=== PATIENT | female | born 1970 | race Caucasian/White ===

== ENCOUNTER 2021-09-05 11:17 | Emergency (ER) | payer OTHER, SELFPAY ==
[2021-09-05 11:29] VITALS: BP 154/91; PULSE 121; RESP 16; TEMP 37.3; O2SAT 100
--- NOTE | 2021-09-05 11:35 | ED.GENADULT ---
HPI - General Adult General Chief complaint: Upper Respiratory Infection Stated complaint: Sore throat Time Seen by Provider: 09/05/21 11:36 Source: patient Mode of arrival: ambulatory Limitations: no limitations History of Present Illness HPI narrative: 51-year-old female patient presents to the [facility] with complaints of sore throat for the past 2 days. Denies any other symptoms. Patient states she is fully vaccinated against COVID. Related Data Allergies Allergy/AdvReac Type Severity Reaction Status Date / Time No Known Allergies Allergy Verified 09/05/21 11:31 Review of Systems Review of Systems: CONSTITUTIONAL: Denies fever, chills, or sweats. EYES: Denies visual changes, redness, or discharge. ENT: Denies rhinorrhea, congestion, positive sore throat, denies otalgia. CARDIOVASCULAR: Denies chest pain, palpitations, or edema. RESPIRATORY: Denies cough or dyspnea. GASTROINTESTINAL: Denies abdominal pain, nausea, vomiting, or diarrhea. GENITOURINARY: Denies dysuria or hematuria. SKIN: Denies rash or itching. MUSCULOSKELETAL: Denies back pain, joint pain, or myalgia. NEUROLOGIC: Denies headache, numbness, or weakness. PSYCHIATRIC: Denies anxiety or depression. [facility] Past Medical History Medical History (Updated 09/05/21 @ 11:51 by DEMI Madden) No significant past medical history Comments At the time of my signature I agree with nursing past medical history, surgical, social, and family history. There is no relevant family history pertinent to the presenting complaint. Exam Narrative: GENERAL: Well-appearing, well-nourished, and in no acute distress. HEAD: Normocephalic, atraumatic. EYES: PERRLA and EOMI. ENT: Nares clear, no rhinorrhea or epistaxis. Mucous membranes moist. Posterior pharynx with some erythema. No tonsillar lodgment no exudates or lesions present. NECK: Supple. No lymphadenopathy CHEST: Clear to auscultation. No respiratory distress. HEART: Regular rate and rhythm. No murmur heard. Normal peripheral pulses. ABDOMEN: Soft, nontender, nondistended, normal active bowel sounds. EXTREMITIES: Normal range of motion. No edema. SKIN: Warm, dry, no rash. NEURO: No focal deficits. Alert and oriented x3. Course Course Level of Care: [facility] Visit Reevaluation(s) Reevaluation #1: Reevaluated patient and notified her that her strep test did come back positive. Discussed with patient we will treat her with antibiotics for the strep infection and discharge her home at this time. Patient verbalized understanding denies any other questions or concerns at this time. Date: 09/05/21 Time: 11:47 Vital Signs Vital signs: Vital Signs Temperature 37.3 C 09/05/21 11:29 Pulse Rate 121 H 09/05/21 11:29 Respiratory Rate 16 09/05/21 11:29 Blood Pressure 154/91 H 09/05/21 11:29 Pulse Oximetry 100 09/05/21 11:29 Temperature 37.3 C 09/05/21 11:29 Pulse Rate 121 H 09/05/21 11:29 Respiratory Rate 16 09/05/21 11:29 Blood Pressure 154/91 H 09/05/21 11:29 Pulse Oximetry 100 09/05/21 11:29 Vital signs reviewed The patient has been informed that they may have pre-hypertension or Hypertension based on a BP reading in the department. I recommend that the patient call the primary care provider listed on their discharge instructions or a physician of their choice this week to arrange follow up for further evaluation of possible pre-hypertension or Hypertension Medical Decision Making Differential Diagnosis Differential Diagnosis: Differential diagnosis: Allergic rhinitis, chronic sinusitis, tonsillitis, acute sinusitis, infectious mononucleosis, seasonal influenza, pertussis, diphtheria, meningococcal disease, viral syndrome, viral bronchitis, RSV, COVID-19 Vital Signs Vital Signs: Vital Signs Temperature 37.3 C 09/05/21 11:29 Pulse Rate 121 H 09/05/21 11:29 Respiratory Rate 16 09/05/21 11:29 Blood Pressure 154/91 H 09/05/21 11:29 Pulse Oximetry 100 09/05/21 11
== END 2021-09-05 11:52 | disposition home or self-care (01) ==
PROVIDERS: Emergency Provider Nurse Practitioner Family
DX: J02.0 Streptococcal pharyngitis (principal)
CPT/HCPCS: 87880; 99213; G0463

== ENCOUNTER 2025-07-11 19:33 | Observation (INO) | payer OTHER, SELFPAY ==
[2025-07-11] VITALS (15 sets, daily range): BP systolic 106–136; BP diastolic 76–102; PULSE 121–153; RESP 17–22; TEMP 36.6; O2SAT 94–99
--- NOTE | ~2025-07-11 | XR_ITS ---
Examination: XR chest 1V portable Clinical History: vomit and cough Comparison: None Technique: Portable AP Findings: Heart size normal. Lungs clear. No acute bony abnormality. IMPRESSION: 1. No acute cardiopulmonary findings given portable technique. Reviewed, dictated and finalized at location R. AL GIVING DIRECTOR
--- NOTE | ~2025-07-11 | CT_ITS ---
Leonor Pradeep Erika EXAMINATION: CT abdomen pelvis w con COMPARISON: None HISTORY: lactic acidosis/VOMITING TECHNIQUE: Axial images were obtained through the abdomen, pelvis post administration of IV contrast. Oral contrast was also administered. Coronal reconstruction images were obtained from the axial views. CT scan performed using dose optimization techniques including the following automated exposure control; adjustment of mA and/or kV; use of iterative reconstruction technique. Automatic exposure control was used to reduce radiation dose. Permanent radiation dose record is archived to PACS. FINDINGS: CT abdomen: LUNG BASES: The lung bases are clear. The visualized portions of the heart and pericardium are unremarkable. LIVER: Severe hepatic steatosis. SPLEEN: Unremarkable. KIDNEYS: Right Kidney: Unremarkable. No calculi. No hydronephrosis. Left Kidney: Unremarkable. No calculi. No hydronephrosis ADRENAL GLANDS: Unremarkable. PANCREAS: Mild pancreatic atrophy. GALLBLADDER/BILIARY: Unremarkable. No biliary dilatation. STOMACH AND ESOPHAGUS: Thickening of the distal esophagus may represent mild esophagitis. Small hiatal hernia. BOWEL/MESENTERY: Moderate fecal content, no colitis or diverticulitis. Appendix is normal. Mesentery demonstrates minimal stranding which may be consistent with mild inflammation. There are no thickened or dilated loops of small bowel. ADENOPATHY/RETROPERITONEUM: No lymphadenopathy. AORTA/VASCULATURE: Normal caliber aorta. FREE FLUID OR FREE AIR: None. CT pelvis: SOLID ORGANS/REPRODUCTIVE: Probable fibroid changes noted of the uterus. BLADDER: Within normal limits. OSSEOUS STRUCTURES: No acute osseous abnormality.No suspicious lesions. OVERLYING SOFT TISSUES: Unremarkable. IMPRESSION: 1. Nonspecific stranding within the mesentery, possible mild mesenteritis 2. Incidental findings above Reviewed, dictated and finalized at location P. LIFT TECHNICIAN
--- OUTSIDE RECORDS SUMMARY | 2025-07-11 19:36 | XMS_ITS | Data Portability ---
Author Organization [facility] Address [address] [place] [address] Assessment Encounter Date Assessment Date Assessment LastModified by Organization Details LastModified Time 11/19/2024 11/19/2024 Chest pain: Low risk findings on recent stress test. Current symptoms appear to be GI related and we will prescribe a short course of Prilosec. I have encouraged to follow-up with primary care for long-term monitoring of PPI and consideration for upper GI endoscopy if indicated. Hypertension : Encouraged low-sodium diet, ambulatory blood pressure monitoring. Continue amlodipine 5 mg daily. Mixed hyperlipidemia: Mild elevation in total cholesterol in 2023. Obtain updated labs. Strongly wishes to avoid pharmacotherapy. Diet and exercise modifications reinforced. Obesity: Encouraged diet/exercise for weight management and cardiovascular risk reduction. Plan follow-up in 4 months and p.r.n. In addition we provided contact information for [facility] primary care for patient to set up appointments to establish a PCP for long-term health management and age-appropriate screenings. [email or web address] Not available 11/19/2024 15:11:13 Plan of Treatment Reminders Order Date Submit Date Provider Last Modified By Organization Details Last Modified Time Details Appointments None recorded. Lab TSH, serum or plasma 2024 025 [facility] (Lab), [address] [place] [address], [id number], 14:37:02 CBC 2024 025 [facility] (Lab), [address] [place], [address], 5 14:37:02 lipid panel, serum 2024 025 [facility] (Lab), [address] [place] [address], [address], 5 14:37:03 CMP, serum or plasma 2024 025 [facility] (Lab), [address] [place] [address], [address], 5 14:37:03 HbA1c (hemoglob in A1c), blood 2024 025 [facility] (Lab), [address] [place] [address], [address], 5 14:37:03 TSH, serum or plasma 2024 025 [email or web address], [address], [place], [address], 5 14:37:01 CBC 2024 025 [email or web address] [facility], [address], [place], [address], 5 14:37:02 lipid panel, serum 2024 025 [email or web address], [address], [place], [address], 5 14:37:02 CMP, serum or plasma 2024 025 [email or web address], [address], [place], [address], 5 14:37:02 HbA1c (hemoglob in A1c), blood 2024 025 [email or web address], [address], [place], [address], 14:37:02 Referral family medicine referral - Establish care 2024 025 [email or web address] Mabel Antonyd [facility], [address], [place], [address], 08:12:26 Procedures None recorded. Surgeries None recorded. Imaging XR, chest, 2 view 2024 025 [facility] (Imaging), [address] [place], [address], 11:43:12 electroca rdiogram 2024 025 [email or web address] In-Office Order, Internal Use Only DO Not Attach Compendium DO Not Attach Compendium, Do Not Delete/merge, [id number] 14:36:12 Medication Orders Prilosec OTC 20 mg tablet,de layed release 2024 025 [facility]/Pharmacy #[id number], [address] [place], [address], 14:17:16 amlodipin e 5 mg tablet 2024 025 [facility]/Pharmacy #[id number], [address] [place], [address], 14:39:12 Patient TargetsNo targets recorded. Patient Instructions Encounter Date Encounter Id Patient Instructions Last Modified By Organization Details Last Modified Time 11/19/2024 [id number] A healthy lifestyle: care instructions [email or web address] Not available 11/19/2024 14:36:12 03/25/2025 [id number] palpitations: care instructions [email or web address] Not available 03/25/2025 14:36:29 A healthy lifestyle: care instructions [email or web address] Not available 03/25/2025 14:45:58 Reason for Referral Family Medicine Referral for Gastroesophageal reflux disease without esophagitis Establish care Referring Physician: Hank Johnston, Cardiology, Encounter Date: 03/25/2025 Results Created Date Observation Date Name Description Value Unit Range Abnormal Flag Note LastModifiedBy Organization Detail LastModifiedTime 11/20/1911/19/2024 alok reina am No observ ation record ed. CAROL In-Office Order Internal Use Only DO Not Attach Compendium DO Not Attach Compendium, Do Not Delete/merge, [id number] 11/19/2024 14:58:26 11/20/19 alok reina am No observ ation record ed. [email or web address] Not Available 2024 15:17:37 Result Notes None recorded. Medical Equipment None Reported. Allergies No known drug allergies Medications Name Sig Start Date Stop Date Status Note LastModified by Organization Details LastModified Time amlodipine 5 mg tablet TAKE 1 TABLET BY MOUTH EVERY DAY active Not Available Not Available No t Available omeprazole 20 mg capsule,gavino yed release TAKE 1 CAPSULE BY MOUTH DAILY active Not Available Not Available No t Available amoxicillin 875 mg-potassium clavulanate 125 mg tablet TAKE 1 TABLET BY MOUTH TWICE A DAY FOR 10 DAYS 11/19 completed Not Available Not Available Not Available Prilosec OTC 20 mg tablet,delay ed release Take 1 tablet every day by oral route. 03/25 completed Not Available Not Available Not Available doxycycline monohydrate 150 mg capsule TAKE 1 CAPSULE BY MOUTH TWICE A DAY FOR 10 DAYS 11/19 completed Not Available Not Available Not Available Vitals Date Recorded Body height Body mass index (BMI) Body weight Respiratory rate Heart rate Oxygen saturation Systolic And Diastolic Provider Name and Address Organization Details Last Updated DateTime 167.64 cm 31 kg/m2 74823.7 4 g 18 /min 93 /min 97 % 134/78 mm[Hg] Veronica Jerome LPN [place] [facility] 14:23:43 Date Recorded Body height Body mass index (BMI) Body weight Respiratory rate Heart rate Oxygen saturation Systolic And Diastolic Provider Name and Address Organization Details Last Updated DateTime 167.64 cm 30.5 kg/m2 40126.9 6 g 18 /min 93 /min 98 % 124/74 mm[Hg] ALISA Blunt [facility] 14:18:36 Social History Question Answer Notes LastModified by Organizat ion Details LastModified Time Tobacco Smoking Status Never Smoker Veronica Jerome LPN null, [facility] 11/19/2024 14:21:52 What Is Your Level Of Caffeine Consumption? Occasional Information not available 11/19/2024 What Was The Date Of Your Most Recent Tobacco Screening? 03/25/2025 Information not available 03/25/2025 Has Tobacco Cessation Counseling Been Provided? No Information not available 11/19/2024 Sex: Female Functional Status Question Answer Note LastModified by Organizat ion Details LastModified Time Do you use any illicit or recreational drugs? No Information not available 11/19/2024 What is your level of alcohol consumption? Occasional Information not available 11/19/2024 Mental Status None recorded. Family History Nothing Reported. Medical History No medical history recorded. Gynecological HistoryNo gynecological history recorded. Obstetrics History GPAL:G 0 P 0 0 0 0 Immunizations Vaccine Type Date Status Note Provider Nam e and Address Organization Details Recorded Time COVID-19, mRNA, LNP-S, PF, 100 mcg/0.5mL dose or 50 mcg/0.25mL dose 08/16/2020 completed Not Available [facility] 14:11:43 COVID-19, mRNA, LNP-S, PF, 100 mcg/0.5mL dose or 50 mcg/0.25mL dose 09/13/2020 completed Not Available [facility] 14:11:43 COVID-19, mRNA, LNP-S, PF, kenny-sucrose, 30 mcg/0.3 mL 02/25/2025 completed Not Available [facility] 2024 14:11:43 Past Encounters Encounter ID Performer Location Encounter Start Date Encounter Closed Date Diagnosis/Indication Diagnosis SNOMED-CT Code Diagnosis ICD10 Code Diagnosis IMO Codes Diagnosis Note [id number] Hank Johnston MD [facility] [place] [address] [place] [address] 11/19/2024 14:11:53 11/22/2024 13:41:44 Essential hypertension 90422468 I10 Chest pain 82318875 R07. 9 Obesity 225260972 E66.9 Mixed hyperlipidemia 267 688377 E78.2 [id number] Hank Johnston MD [facility] [place] [address] [place] [address] 03/25/2025 14:10:05 03/26/2025 11:43:01 Essential hypertension 24548929 I10 77369 Continue amlodipine 5 mg daily. Will need low-sodium diet, ambulatory blood pressure monitoring and reaching out to care team if blood pressure numbers remain suboptimal (under 100/60, over 140/90) or if symptoms. Dyspnea on exertion 6084 5006 R06.09 120606 Echocardio gram 2023 with no structural heart disease, valvular disease or diastolic dysfunctio n. Low risk findings on stress test. Non nicotine user with no diabetes. Obtain chest x-ray. Obtain lab work as outlined below. Does not feel like she has symptom complex suggestive of LEANNE. Red flag symptoms reviewed. If she continues to have symptoms, may need to repeat cardiac testing. Palpitations 01861668 R0 0.2 79486 Symptoms have abated. No significan t arrhythmia s on 48 hour Holter monitor. Lifestyle modificati ons and self rhythm monitoring encouraged . Gastroesop hageal reflux disease without esophagitis 065344776 K21.9 974418 As a courtesy to the patient we will continue omeprazole which we had prescribed previously . Strongly encouraged that she follow-up with primary care to establish care and we will provide referral Obese class I [id number] 05594 E66.699 [id number] Diet/exerc ise encouraged for weight management and cardiovasc ular risk reduction. Health Concerns Section Related Observation LastModified by Organization Detai ls LastModified Time None Recorded Concern Status LastModified by Organization Details LastModified Time None Recorded Advance Directives Directive None Recorded Payers Insurance Date Sequence Insurance Name Policy Number Policy Cooper Covered Member ID Cooper Member ID Guarantor Name 06/28/2025 1 [employer] [place] - DOS ON OR AFTER 2020 (MEDICAID REPLACEMENT - HMO) Leonor James [id number] Leonor James Notes Date Note Type Note Provider Name and Address Organization Details Recorded Time 11/19/2024 text/html ROS as noted in the [facility] Leonor James is a 54 y.o. female who presents for ongoing evaluation and management of dyspnea on exertion and chest pain. Interval history:She is walking approximately 30 minutes daily and working on diet/ exercise for management of mixed hyperlipidemia. She has occasional episodes of chest pain which are postprandial, epigastric with no exertional component. She denies any subjective dyspnea. Her BP is well controlled on current dose of amlodipine. She denies any palpitations, presyncope or syncope. CARDIAC DIAGNOSTICS:Echocar diogram November 2023: LVEF 60-65%, normal RV function, no pericardial effusion, normal diastology 48 hour Holter monitor, November 2023: No significant arrhythmias noted. PAC and PVC burden less than 1%. Lexiscan nuclear stress test, November 2023: No inducible ischemia. Hank Johnston MD Attn: Accounting, [address] [place], [address], [facility] 11/19/2024 15:11:32 03/25/2025 text/html ROS as noted in the [facility] Leonor James is a 54 y.o. female who presents for ongoing evaluation and management of dyspnea on exertion and chest pain. Interval history:she has not had any chest pain. She reports sporadic palpitations which have improved. She reports exertional dyspnea while climbing uphill. She reports increased situational stressors. She has not established with a PCP. CARDIAC DIAGNOSTICS:Echocar diogram November 2023: LVEF 60-65%, normal RV function, no pericardial effusion, normal diastology 48 hour Holter monitor, November 2023: No significant arrhythmias noted. PAC and PVC burden less than 1%. Lexiscan nuclear stress test, November 2023: No inducible ischemia. Hank Johnston MD Attn: Accounting[address] [place], [address], [place] - [facility] 03/25/2025 14:47:08 OBGyn Episode No OBEpisode recorded.
--- OUTSIDE RECORDS SUMMARY | 2025-07-11 19:36 | XMS_ITS | Clinical Summary ---
Author Organization [facility] Address [address] [place] [address] Care Team Providers Care Rehabilitation Clerk Name Role Phone Unknown, Notinfile Primary Care Provider Unavail able Allergies No known active allergies Medications amLODIPine (NORVASC) 5 mg tabletIndication s:Precordial pain,Palpitation s,Hypertension, unspecified type,CORTEZ (dyspnea on exertion) Take 1 tablet (5 mg total) by mouth daily 90 tablet 3 12/06/2023 Active Active Problems Problem Noted Date Diagnosed Date Palpitations 11/04/2023 Hypertension 11/04/2023 Precordial pain 11/04/2023 CORTEZ (dyspnea on exertion) 11/04/2023 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 Doing well since surgery. No evidence of deep vein thrombosis. I have recommended continuing her compression therapy. She has been having issues with hypertension and palpitations, discussed with Dr. Johnston we will get her in for further evaluation. 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 Left great saphenous vein is noted to be ablated in no acute DVT is found on postop day 3 and 4 week duplex scan. Stab phlebectomy sites are healed. Patient complains of discomfort to her right lower extremity with significant reflux to the right great saphenous femoral junction. Plan: Recommend right EVLT with stab phlebectomies. Risks, benefits, and alternatives to saphenous ablation and stab phlebectomies were discussed with the patient. Risks including bleeding, infection, deep vein thrombosis, pulmonary embolism, burn injury to the skin and/or nerve. They wished to proceed. 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 Left greater than right. Risks benefits alternatives to left GSV ablation and stab phlebectomies discussed, risks including bleeding, infection, DVT/PE, thermal injury to the skin and surrounding structures, and need further surgery. She wished to proceed. Assessment & Plan (02/04/2023 12:22 PM CDT): Symptomatic bulky varicosities noted to the left medial calf. Encouraged frequent elevation and use compression therapy . Plan: Obtain a reflux study and follow-up in the next few weeks. Family History Medical History Relation Name Comments Sudden Cardiac Mother Relation Name Status Comments Mother Social History Tobacco Use Types Packs/Day Years Used Date Smoking Tobacco: Never Smokeless Tobacco: Never Tobacco Cessation:Counseling Given: Not Answered Personal Safety Answer Date Recorded Getting School Help Needed Not on file 08/11 Comments No Sex and Gender Information Value Date Recorded Sex Assigned at Not on file Legal Sex Female 3:10 PM CDT Gender Identity Female 05/24/2023 3:15 PM CDT Sexual Orientation Not on file Last Filed Vital Signs Vital Sign Reading Time Taken Comments Blood Pressure 120/80 12/06/2023 10:48 AM CDT Pulse 76 12/06/2023 10:48 AM CDT Temperature - - Respiratory Rate - - Oxygen Saturation 99% 12/06/2023 10:48 AM CDT Inhaled Oxygen Concentration - - Weight 86.6 kg (191 lb) 12/06/2023 10:48 AM CDT Height 167.6 cm (5' 6) 10/31/2023 3:02 PM CDT Body Mass Index 30.83 10/31/2023 3:02 PM CDT Plan of Treatment Health Maintenance Due Date Last Done Comments Breast Cancer Screening-Mammogram 1970 Cervical Cancer Screening 1970 Colon Cancer Screening-Colonoscopy 1970 Depression Screening 1970 Hepatitis C Screening 1970 DTaP/Tdap/Td Vaccine (1 - Tdap) 1981 Hepatitis B Screening 1988 Regular Well Visit/Exam 18-64 1988 Zoster Vaccine (1 of 2) 2020 Covid-19 Vaccine (3 - 2024-2 6 season) 2025 09/13/2020, 08/16/2020 Influenza Vaccine (#1) 2025 Pneumococcal vaccine <65 Aged Out No longer eligible based on patient's age to complete this topic Insurance [facility] Care Teams Rehabilitation Clerk Relationship Specialty Start Date End Date Unknown, Notinfile PCP - General 01/31/23
--- NOTE | 2025-07-11 19:38 | ED_ITS ---
HPI - General Adult General Chief complaint: Nausea/Vomiting/Diarrhea Stated complaint: vomiting x 2 days Time Seen by Provider: 07/11/25 19:37 History of Present Illness HPI narrative: Leonor is a 54F with a PMH of HTN, etoh use, and and anxiety that presented to the ED with 2 days of not feeling well. It started with fatigue and aches and today she started to have a lot of nausea and non-bloody vomiting. She has not been able to keep anything down. No diarrhea, fevers, CP or dyspnea. Related Data Allergies Allergy/AdvReac Type Severity Reaction Status Date / Time No Known Allergies Allergy Verified 07/11/25 20:28 Review of Systems 2 Review of Systems: All systems reviewed & are unremarkable except as noted in HPI and below [facility] Past Medical History Medical History No significant past medical history Exam 2 Const: General: cooperative, healthy appearing, comfortable, no acute distress, well developed, alert, awake and Physically active O rientation/consciousness: oriented to person, oriented to place and oriented to time Other: moderate tremors HENMT: Head: normal to inspection, normocephalic and atraumatic Ears: h earing grossly normal bilaterally and external ears normal Face/Nose/Sinus: N ormal external nose present Eyes: General: appearance normal, both eyes and all related structures P eriorbital: periorbital findings normal Sclera: sclerae normal Pupils: E qual, round and reactive pupils present Neck: Neck: normal visual inspection Chest: Chest palpation & inspection: normal inspection of the chest Resp: Effort & Inspection: normal respiratory effort, able to speak in complete sentences and no respiratory distress Auscultation: clear to auscultation bilaterally Cardio: Jugular venous distension: no JVD Rhythm: regular rhythm Other: tachycardia GI: Inspection: normal to inspection GI Palp: Yes Soft to palpation A uscultation: normal bowel sounds Skin: General skin exam: normal color and no rashes or lesions noted Neuro: General: oriented to person, oriented to place and oriented to time Cranial nerves: Yes Equal, round and reactive pupils present Extrem: General: normal to inspection Psych: Other: very anxious appearing. Course Course Emergency Course: Ordered labs, EKG, fluids, zofran and diazepam EKG showed sinus tachycardia with a rate of 134, normal axis and no ST elevation/depression Labs showed mild leukocytosis, transaminitis, elevated bilirubin and very high lactic acid. Ordered additional fluids, repeat labs, blood cultures and zosyn. Repeat lactic acid and AST/ALT were improved but still elevated. Fluids were continued and a CT was done with results pending. CT showed hepatic steatosis, slight haziness in the mesentery consistent with mild mesenteritis, multiple uterine fibroids, uterus measures 6.0 x 6.2 x 6.1. No other acute findings or incidental findings. Repeat lactic acid trended down to 2. She agreed to be admitted to observation here. Her pulse had come down to 104, BP was stable. Fluids were continued and she was given another dose of Zosyn. She will be admitted for lactic acidodis, sepsis, and N/V Vital Signs Vital signs: Vital Signs Temperature 97.9 F 07/11/25 19:33 Pulse Rate 153 H 07/11/25 19:33 Respiratory Rate 22 H 07/11/25 19:33 Blood Pressure 131/102 H 07/11/25 19:33 Pulse Oximetry 95 07/11/25 19:33 Oxygen Delivery Room Air 07/11/25 19:33 Temperature 97.9 F 07/11/25 19:33 Pulse Rate 109 H 07/12/25 04:21 Respiratory Rate 16 07/12/25 04:00 Blood Pressure 118/76 07/12/25 04:00 Pulse Oximetry 94 07/12/25 04:00 Oxygen Delivery Room Air 07/12/25 04:00 Medical Decision Making Vital Signs Vital Signs: Vital Signs Temperature 97.9 F 07/11/25 19:33 Pulse Rate 153 H 07/11/25 19:33 Respiratory Rate 22 H 07/11/25 19:33 Blood Pressure 131/102 H 07/11/25 19:33 Pulse Oximetry 95 07/11/25 19:33 Oxygen Delivery Room Air 07/11/25 19:33 Temperature 97.9 F 07/11/25 19:33 Pulse Rate 109 H 07/12/25 04:21 Respiratory Rate 16 07/12/25 04:00 Blood Pressure 118/76 07/12/25 04:00 Pulse Oximetry 94 07/12/25 04:00 Oxygen Delivery Room Air 07/12/25 04:00 Lab Data 07/11/25 19:50 07/11/25 22:01 Labs: Lab Results 07/11/25 07/11/25 07/11/25 Range/Units 19:38 19:50 21:24 WBC 13.8 H (4.8-10.8) K/mm3 RBC 5.13 (4.20-5.40) M/mm3 Hgb 15.4 H (12.0-15.0) g/dL Hct 48.4 (35.0-49.0) % MCV 94.3 (78.0-102.0) fL MCH 30.0 (27.0-31.0) pg MCHC 31.8 L (32-36) g/dL RDW 14.0 (11.6-14.4) % Plt Count 313 (150-420) K/mm3 MPV 10.0 (9.2-11.8) fl Immature Gran % (Auto) 0.4 H (0.0-0.0) % Neut % (Auto) 93.0 H (50.0-70.0) % Lymph % (Auto) 3.3 L (18.0-42.0) % [place] % (Auto) 2.6 (2.0-11.0) % Eos % (Auto) 0.3 L (1.0-6.0) % Baso % (Auto) 0.4 (0.0-1.0) % Lymph # (Auto) 0.46 L (1.10-4.50) K/mm3 [place] # (Auto) 0.36 (0.10-0.90) K/mm3 Eos # (Auto) 0.04 (0.02-0.50) K/mm3 Baso # (Auto) 0.06 (0.00-0.10) K/mm3 Abs Immat Gran (auto) 0.05 H (0.00-0.00) K/mm3 Absolute Neuts (auto) 12.83 H (1.70-7.20) K/mm3 Absolute Nucleated RBC 0.00 (0.00-0.00) K/mm3 Nucleated RBC % 0.0 (0-0.0) % PT 11.4 (9.50-12.1) Seconds INR 1.0 Sodium 144 (137-145) mmol/L Potassium 4.2 (3.4-5.0) mmol/L Chloride 101 (98-107) mmol/L Carbon Dioxide 13 L (22-30) mmol/L Anion Gap 30 H (4-12) mmol/L BUN 9 (7-17) mg/dL Creatinine 0.81 (0.7-1.0) mg/dL Estim Creat Clear Calc Not Reportable Estimated GFR > 60 (59 - ) Glucose 109 (65-110) mg/dL POC Capillary Glucose 93 (65-105) mg/dl Calculated Osmolality 297 H (285-295) mOsm/kg Lactic Acid 11.9 H* (0.7-2.0) mmol/L Calcium 10.3 H (8.4-10.2) mg/dL Magnesium 1.7 (1.6-2.3) mg/dL Total Bilirubin 1.8 H (0.2-1.3) mg/dL AST 161 H (14-36) U/L ALT 106 H (6-35) U/L Alkaline Phosphatase 117 (38-126) U/L Troponin I < 0.012 (0.000-0.034) ng/mL Total Protein 9.1 H (6.3-8.2) g/dL Albumin 5.4 H (3.5-5.1) g/dL Lipase 58 (23-300) U/L TSH 0.509 (0.465-4.680) uIU/mL Urine Color Light yellow (Yellow) Urine Appearance Clear (Clear) Urine pH 5.5 (5.0-8.0) Ur Specific [place] >= 1.030 H (1.010-1.020) Urine Protein Trace H (Negative) Urine Glucose (UA) Negative (Negative) Urine Ketones 2+ H (Negative) Ur Blood (Man) Negative (Negative) Urine Nitrate Negative (Negative) Urine Bilirubin Negative (Negative) Urine Urobilinogen 0.2 (0.2-1.0) mg/dL Leukocyte Esterase Rfl Negative (Negative) SUZIE/UL Urine RBC 0-2 (0-2) /hpf Urine WBC 0-3 (0-3) /hpf Ur Squamous Epith Cells Rare (Few) /hpf Urine Bacteria Trace (None) /hpf Urine Opiates Screen Negative (Negative) Urine Methadone Screen Negative (Negative) Ur Barbiturates Screen Negative (Negative) Ur Phencyclidine Scrn Negative (Negative) Ur Amphetamine Screen Negative (Negative) U Benzodiazepines Scrn Negative (Negative) Urine Cocaine Screen Negative (Negative) U Cannabinoids Screen Negative (Negative) Ethyl Alcohol < 10 (<10) mg/dL Hepatitis A IgM Ab Hep Bs Antigen Hep B Core IgM Ab Hepatitis C Ab Screen Influenza A (RT-PCR) Negative (Negative) Influenza B (RT-PCR) Negative (Negative) RSV (RT-PCR) Negative (Negative) SARS-CoV-2 RNA (RT-PCR) Negative (Negative) 07/11/25 07/12/25 Range/Units 22:01 03:19 WBC (4.8-10.8) K/mm3 RBC (4.20-5.40) M/mm3 Hgb (12.0-15.0) g/dL Hct (35.0-49.0) % MCV (78.0-102.0) fL MCH (27.0-31.0) pg MCHC (32-36) g/dL RDW (11.6-14.4) % Plt Count (150-420) K/mm3 MPV (9.2-11.8) fl Immature Gran % (Auto) (0.0-0.0) % Neut % (Auto) (50.0-70.0) % Lymph % (Auto) (18.0-42.0) % [place] % (Auto) (2.0-11.0) % Eos % (Auto) (1.0-6.0) % Baso % (Auto) (0.0-1.0) % Lymph # (Auto) (1.10-4.50) K/mm3 [place] # (Auto) (0.10-0.90) K/mm3 Eos # (Auto) (0.02-0.50) K/mm3 Baso # (Auto) (0.00-0.10) K/mm3 Abs Immat Gran (auto) (0.00-0.00) K/mm3 Absolute Neuts (auto) (1.70-7.20) K/mm3 Absolute Nucleated RBC (0.00-0.00) K/mm3 Nucleated RBC % (0-0.0) % PT (9.50-12.1) Seconds INR Sodium 142 (137-145) mmol/L Potassium 4.5 (3.4-5.0) mmol/L Chloride 103 (98-107) mmol/L Carbon Dioxide 16 L (22-30) mmol/L Anion Gap 23 H (4-12) mmol/L BUN 7 (7-17) mg/dL Creatinine 0.71 (0.7-1.0) mg/dL Estim Creat Clear Calc 84 Estimated GFR > 60 (59 - ) Glucose 78 (65-110) mg/dL POC Capillary Glucose (65-105) mg/dl Calculated Osmolality 291 (285-295) mOsm/kg Lactic Acid 9.0 H* 2.2 H (0.7-2.0) mmol/L Calcium 10.0 (8.4-10.2) mg/dL Magnesium (1.6-2.3) mg/dL Total Bilirubin 2.2 H (0.2-1.3) mg/dL AST 142 H (14-36) U/L ALT 89 H (6-35) U/L Alkaline Phosphatase 101 (38-126) U/L Troponin I (0.000-0.034) ng/mL Total Protein 8.1 (6.3-8.2) g/dL Albumin 5.0 (3.5-5.1) g/dL Lipase (23-300) U/L TSH (0.465-4.680) uIU/mL Urine Color (Yellow) Urine Appearance (Clear) Urine pH (5.0-8.0) Ur Specific [place] (1.010-1.020) Urine Protein (Negative) Urine Glucose (UA) (Negative) Urine Ketones (Negative) Ur Blood (Man) (Negative) Urine Nitrate (Negative) Urine Bilirubin (Negative) Urine Urobilinogen (0.2-1.0) mg/dL Leukocyte Esterase Rfl (Negative) SUZIE/UL Urine RBC (0-2) /hpf Urine WBC (0-3) /hpf Ur Squamous Epith Cells (Few) /hpf Urine Bacteria (None) /hpf Urine Opiates Screen (Negative) Urine Methadone Screen (Negative) Ur Barbiturates Screen (Negative) Ur Phencyclidine Scrn (Negative) Ur Amphetamine Screen (Negative) U Benzodiazepines Scrn (Negative) Urine Cocaine Screen (Negative) U Cannabinoids Screen (Negative) Ethyl Alcohol (<10) mg/dL Hepatitis A IgM Ab Pending Hep Bs Antigen Pending Hep B Core IgM Ab Pending Hepatitis C Ab Screen Pending Influenza A (RT-PCR) (Negative) Influenza B (RT-PCR) (Negative) RSV (RT-PCR) (Negative) SARS-CoV-2 RNA (RT-PCR) (Negative) Discharge Plan Discharge Clinical Impression: Acidosis, lactic, Sepsis, Nausea & vomiting Patient Disposition: [facility] Condition: Serious Patient Language: Jamaican Prescriptions: No Action amoxicillin 500 mg tablet 1,000 mg PO Q12H 10 Days Qty: 40 0RF fluconazole 150 mg tablet 150 mg PO DAILY Qty: 1 0RF Follow-up/Referrals: UNKNOWN,DOCTOR [Non-Staff]
--- NOTE | 2025-07-11 19:39 | ECG_ITS ---
Test Date: 2025-07-11 19:55:15 Measurements Intervals [place] Rate: 134 P: 35 OR: 138 QRS: 67 QRSD: 78 T: 25 QT: 300 QTc: 449 Interpretive Statements REDUCED ECG QUALITY BECAUSE OF BASELINE ARTIFACT SINUS TACHYCARDIA OTHERWISE GROSSLY NORMAL TRACING No previous ECG available for comparison Electronically Signed On 07-12-2025 13:30:19 PROJECT ADMIN by Vitaliy White M.D.
--- NOTE | 2025-07-11 19:40 | PC.NURSE ---
DR ARRIOLA AT THE BEDSIDE
[2025-07-11] MEDS: LACTATED RINGERS 1,000 ML 999 ML IV CONT ×3 (20:00→22:05)
[2025-07-11] MEDS: ONDANSETRON INJ 4 MG/2 ML VIAL IV PUSH ×2 (20:00→23:00)
[2025-07-11] MEDS: diazePAM INJ (*CRX) 10 MG/2 ML SYRINGE 5 MG IV PUSH ×2 (20:01→22:05)
[2025-07-11 20:02] LABS: Hematocrit 48.4 % (35.0-49.0); Hemoglobin 15.4 g/dL (12.0-15.0); Immature Granulocyte Percent A 0.4 % (0.0-0.0); Lymphocytes Absolute Auto 0.46 K/mm3 (1.10-4.50); Mean Corpuscular HGB Conc 31.8 g/dL (32-36); Mean Corpuscular Hemoglobin 30.0 pg (27.0-31.0); Mean Corpuscular Volume 94.3 fL (78.0-102.0); Nucleated Red Blood Cells Absolute Auto 0.00 K/mm3 (0.00-0.00); Nucleated Red Blood Cells Perc 0.0 % (0-0.0); Platelet Count Result 313 K/mm3 (150-420); Red Blood Count 5.13 M/mm3 (4.20-5.40); White Blood Count 13.8 K/mm3 (4.8-10.8)
[2025-07-11 20:13] LABS: Alanine Aminotransferase 106 U/L (6-35); Albumin Level 5.4 g/dL (3.5-5.1); Aspartate Amino Transferase 161 U/L (14-36); Blood Urea Nitrogen 9 mg/dL (7-17); Carbon Dioxide 13 mmol/L (22-30); Estimated Glomerular Filt Rate > 60; Total Protein 9.1 g/dL (6.3-8.2)
[2025-07-11 20:14] LABS: INR 1.0; Prothrombin Time 11.4 Seconds (9.50-12.1)
--- NOTE | 2025-07-11 20:19 | PC.NURSE ---
PATIENT IS CURRENLTY RESTING ON STRETCHER. REPORTS THAT HER SHAKING HAS GOTTEN BETTER SINCE RECEIVING VALIUM. IS AT HER SIDE. CALL LIGHT IS IN REACH. CURRENTLY WAITING FOR ALL TESTS TO BE RESULTED.
[2025-07-11 20:25] LABS: Troponin I < 0.012 ng/mL (0.000-0.034)
[2025-07-11 20:38] LABS: Alkaline Phosphatase 117 U/L (38-126); Anion Gap 30 mmol/L (4-12); Bilirubin,Total 1.8 mg/dL (0.2-1.3); Calcium 10.3 mg/dL (8.4-10.2); Chloride 101 mmol/L (98-107); Glucose 109 mg/dL (65-110); Lipase 58 U/L (23-300); Magnesium 1.7 mg/dL (1.6-2.3); Osmolality Calculated 297 mOsm/kg (285-295); Potassium 4.2 mmol/L (3.4-5.0); Sodium 144 mmol/L (137-145)
[2025-07-11 20:39] LABS: Influenza A QL RT-PCR Negative (Negative); Influenza B QL RT-PCR Negative (Negative); RSV RNA, RT-PCR Negative (Negative); SARS-CoV-2 RNA PCR Negative (Negative)
--- NOTE | 2025-07-11 21:15 | PC.NURSE ---
PATIENT AMBULATED TO THE BATHROOM TO GIVE URINE SAMPLE. PATIENT HAS STARTED TO SHAKE UNCONTROLLABLY AGAIN. DR ARRIOLA NOTIFIED
[2025-07-11 21:16] LABS: Thyroid Stimulating Hormone 0.509 uIU/mL (0.465-4.680)
[2025-07-11 21:34] LABS: Add Urine Microscopic? YES; Appearance Urine Clear (Clear); Glucose Urine UA Negative (Negative); Leukocyte Esterase Ur Negative LEU/UL (Negative); Nitrate Urine Negative (Negative); Specific Grav Ur >= 1.030 (1.010-1.020)
[2025-07-11 21:50] LABS: Cannabinoid Screen Urine Negative (Negative)
--- NOTE | 2025-07-11 21:52 | PC.NURSE ---
DR ARRIOLA AT THE BEDSIDE
--- NOTE | 2025-07-11 21:56 | PC.NURSE ---
LAB AT THE BEDSIDE. WILL START ANTIBIOTICS ONCE BLOOD CULTURES HAVE BEEN DRAWN
[2025-07-11] MEDS: PIPERACILLIN/TAZOBACTAM SOD 3.375 GM in SODIUM CHLORIDE 0.9% IV 50 ML 100 ML IVPB (22:05)
[2025-07-11 22:18] LABS: Alanine Aminotransferase 89 U/L (6-35); Albumin Level 5.0 g/dL (3.5-5.1); Alkaline Phosphatase 101 U/L (38-126); Anion Gap 23 mmol/L (4-12); Aspartate Amino Transferase 142 U/L (14-36); Bilirubin,Total 2.2 mg/dL (0.2-1.3); Blood Urea Nitrogen 7 mg/dL (7-17); Calcium 10.0 mg/dL (8.4-10.2); Carbon Dioxide 16 mmol/L (22-30); Chloride 103 mmol/L (98-107); Estimated CRCL calculation 84 ml/min; Estimated Glomerular Filt Rate > 60; Glucose 78 mg/dL (65-110); Osmolality Calculated 291 mOsm/kg (285-295); Potassium 4.5 mmol/L (3.4-5.0); Sodium 142 mmol/L (137-145); Total Protein 8.1 g/dL (6.3-8.2)
--- NOTE | 2025-07-11 22:18 | PC.NURSE ---
PATIENT IS CURRENTLY IN CT
--- NOTE | 2025-07-11 22:24 | PC.NURSE ---
PATIENT HAS TREMBLING AGAIN AND NAUSEA. MEDICATED WITH VALIUM. PATIENT IS ON STRETCHER. ANTIBIOTIC IS INFUSING TO RIGHT AC. PATIENT HAS CALL LIGHT IN REACH. IS AT HER SIDE.
--- NOTE | 2025-07-11 22:50 | PC.NURSE ---
PATIENT IS RETCHING IN THE ROOM. WILL UPDATE DR ARRIOLA.
--- NOTE | 2025-07-11 23:57 | PC.NURSE ---
PATIENT VOMITING AGAIN. DR ARRIOLA HAS BEEN NOTIFIED.
[2025-07-12] VITALS (17 sets, daily range): BP systolic 116–141; BP diastolic 75–98; PULSE 98–143; RESP 16–22; TEMP 36.8–37.7; O2SAT 93–100; BMI 29.7
[2025-07-12] MEDS: LACTATED RINGERS 1,000 ML 150 ML IV CONT (00:02)
[2025-07-12] MEDS: diazePAM INJ (*CRX) 10 MG/2 ML SYRINGE 5 MG IV PUSH (00:16)
--- NOTE | 2025-07-12 00:41 | PC.NURSE ---
PATIENT IS CURRENTLY NOT VOMITING. REPORTS THAT SHE DOESNT FEEL LIKE SHE NEEDS TO VOMIT. IS AT HER SIDE. CALL LIGHT IN REACH
--- NOTE | 2025-07-12 00:44 | PC.NURSE ---
CURRENTLY WAITING ON CT RESULTS. PATIENT AND AWARE OF DELAY.
--- NOTE | 2025-07-12 01:40 | PC.NURSE ---
SITTING AT THE FOOT OF THE STRETCHER. TRYING TO GET COMFORTABLE. REPORTS BURNING SENSATION TO HER THROAT AND UPPER CHEST AFTER VOMITING. CURRENTLY VOMITING UP BILE.
--- NOTE | 2025-07-12 02:27 | PC.NURSE ---
PATIENT AMBUALTED DOWN TO THE BATHROOM WITH THE HELP OF HER . CURRENTLY NO RETCHING OR VOMITING.
--- NOTE | 2025-07-12 02:33 | PC.NURSE ---
CALLED RADIOLOGY FOR UPDATE ON CT RESULTS. EDWARD WILL LOOK INTO IT.
[2025-07-12] MEDS: PROCHLORPERAZINE EDISYLATE 10 MG/2 ML VIAL IV PUSH (03:15)
--- NOTE | 2025-07-12 03:46 | PC.NURSE ---
DR ARRIOLA AT THE BEDSIDE
--- NOTE | 2025-07-12 04:10 | PC.NURSE ---
PATIENT APPEARS TO BE SLEEPING AT THIS TIME. CALL LIGHT IN REACH. RESTING IN CHAIR IN THE ROOM
--- NOTE | 2025-07-12 04:43 | PC.NURSE ---
FARHAD MAURER NOTIFIED OF BED REQUEST
--- NOTE | 2025-07-12 05:10 | ADMGEN ---
This patient, Leonor James, was admitted to 2nd Floor Room 205-1. Patient/family oriented to hospital policies and general routines including ID bracelet, bed and alarms, visiting hours, pain management, procedures, bathroom and other care routines, personal items, smoking policy, room service/diet, and visiting hours. Information on how to activate the Rapid Response Team has been discussed. Patient/Family are encouraged to report perceived risks to care and to ask questions if they do not understand what they are told or what they should do.
[2025-07-12] MEDS: PIPERACILLIN/TAZOBACTAM SOD 3.375 GM in SODIUM CHLORIDE 0.9% IV 50 ML 100 ML IVPB (05:13)
[2025-07-12] MEDS: ONDANSETRON INJ 4 MG/2 ML VIAL IV PUSH (05:45)
[2025-07-12 07:42] LABS: Hematocrit 37.6 % (35.0-49.0); Hemoglobin 12.5 g/dL (12.0-15.0); Immature Granulocyte Percent A 0.3 % (0.0-0.0); Lymphocytes Absolute Auto 1.15 K/mm3 (1.10-4.50); Mean Corpuscular HGB Conc 33.2 g/dL (32-36); Mean Corpuscular Hemoglobin 31.0 pg (27.0-31.0); Mean Corpuscular Volume 93.3 fL (78.0-102.0); Nucleated Red Blood Cells Absolute Auto 0.00 K/mm3 (0.00-0.00); Nucleated Red Blood Cells Perc 0.0 % (0-0.0); Platelet Count Result 203 K/mm3 (150-420); Red Blood Count 4.03 M/mm3 (4.20-5.40); White Blood Count 6.8 K/mm3 (4.8-10.8)
[2025-07-12] MEDS: PANTOPRAZOLE 40 MG TABLET PO (08:00)
[2025-07-12 08:07] LABS: Alanine Aminotransferase 64 U/L (6-35); Albumin Level 4.3 g/dL (3.5-5.1); Alkaline Phosphatase 82 U/L (38-126); Anion Gap 11 mmol/L (4-12); Aspartate Amino Transferase 112 U/L (14-36); Bilirubin,Total 1.8 mg/dL (0.2-1.3); Blood Urea Nitrogen 8 mg/dL (7-17); Calcium 9.4 mg/dL (8.4-10.2); Carbon Dioxide 31 mmol/L (22-30); Chloride 98 mmol/L (98-107); Estimated CRCL calculation 81 ml/min; Estimated Glomerular Filt Rate > 60; Glucose 80 mg/dL (65-110); Osmolality Calculated 287 mOsm/kg (285-295); Potassium 3.7 mmol/L (3.4-5.0); Sodium 140 mmol/L (137-145); Total Protein 6.8 g/dL (6.3-8.2)
--- NOTE | 2025-07-12 10:25 | PM.SD2 ---
Same Day Admit/Disch: HPI History of Present Illness Chief complaint: vomiting x 2 days Narrative: Leonor James is a 54 year old female [facility] Past Medical History Medical History No significant past medical history Social History Social History Smoking status: Never smoker Alcohol intake: current Drinks per week: 10 Substance use: never Lack of Transportation: No Lack of Food: Never True Current Housing: I Have Housing Concerned About Future Housing: No Difficulty Paying Gas/Electric Bills: No Difficulty Paying for Meds: No Currently Unemployed: No Education: Associate Degree Difficulty w/ Childcare or Family Care: No Spiritual care concerns: No Same Day Admit/Disch: Med Pre-admit Medications Home Medications ?Medication ?Instructions ?Recorded ?Confirmed ?Type amlodipine 5 mg tablet 5 mg PO DAILY hypertension 07/12/25 07/12/25 History omeprazole 20 mg capsule,delayed 20 mg PO DAILY 07/12/25 07/12/25 History release ondansetron 4 mg disintegrating 4 mg PO Q8H PRN nausea and 07/12/25 Rx tablet vomiting #7 tabs Review of Systems Review of Systems All systems reviewed & are unremarkable except as noted in HPI and below Exam Const: General: comfortable and no acute distress HENMT: Face/Nose/Sinus: Normal nares present Mouth: Yes moist mucous membranes Eyes: General: appearance normal, both eyes and all related structures Sclera: sclerae normal Neck: Neck: supple Resp: Effort & Inspection: normal respiratory effort Auscultation: clear to auscultation bilaterally Cardio: Rate: regular rate Rhythm: regular rhythm GI: GI Palp: Yes Soft to palpation Auscultation: normal bowel sounds Skin: General skin exam: normal color and no rashes or lesions noted Neuro: General: gait normal Speech: normal speech Motor exam (neuro): 5/5 motor strength present throughout Sensory Exam: normal sensation Extrem: General: normal to inspection Psych: Mental Status: mental status grossly normal Affect: normal affect DS: Data Data Completed and Pending Pending studies at discharge: blood cultures Labs on day of discharge: Labs from last 24 hours 07/12/25 07/12/25 07/11/25 07:37 03:19 22:01 WBC 6.8 RBC 4.03 L Hgb 12.5 Hct 37.6 MCV 93.3 MCH 31.0 MCHC 33.2 RDW 14.3 Plt Count 203 MPV 9.3 Immature Gran % (Auto) 0.3 H Neut % (Auto) 72.1 H Lymph % (Auto) 16.9 L [place] % (Auto) 10.3 Eos % (Auto) 0.1 L Baso % (Auto) 0.3 Lymph # (Auto) 1.15 [place] # (Auto) 0.70 Eos # (Auto) 0.01 L Baso # (Auto) 0.02 Abs Immat Gran (auto) 0.02 H Absolute Neuts (auto) 4.92 Absolute Nucleated RBC 0.00 Nucleated RBC % 0.0 PT INR Sodium 140 142 Potassium 3.7 4.5 Chloride 98 103 Carbon Dioxide 31 H 16 L Anion Gap 11 23 H BUN 8 7 Creatinine 0.75 0.71 Estim Creat Clear Calc 81 84 Estimated GFR > 60 > 60 Glucose 80 78 POC Capillary Glucose Calculated Osmolality 287 291 Lactic Acid 1.0 2.2 H 9.0 H* Calcium 9.4 10.0 Magnesium Total Bilirubin 1.8 H 2.2 H AST 112 H 142 H ALT 64 H 89 H Alkaline Phosphatase 82 101 Troponin I Total Protein 6.8 8.1 Albumin 4.3 5.0 Lipase TSH Urine Color Urine Appearance Urine pH Ur Specific [place] Urine Protein Urine Glucose (UA) Urine Ketones Ur Blood (Man) Urine Nitrate Urine Bilirubin Urine Urobilinogen Leukocyte Esterase Rfl Urine RBC Urine WBC Ur Squamous Epith Cells Urine Bacteria Urine Opiates Screen Urine Methadone Screen Ur Barbiturates Screen Ur Phencyclidine Scrn Ur Amphetamine Screen U Benzodiazepines Scrn Urine Cocaine Screen U Cannabinoids Screen Ethyl Alcohol Hepatitis A IgM Ab Pending Hep Bs Antigen Pending Hep B Core IgM Ab Pending Hepatitis C Ab Screen Pending Influenza A (RT-PCR) Influenza B (RT-PCR) RSV (RT-PCR) SARS-CoV-2 RNA (RT-PCR) 07/11/25 07/11/25 07/11/25 21:24 19:50 19:38 WBC 13.8 H RBC 5.13 Hgb 15.4 H Hct 48.4 MCV 94.3 MCH 30.0 MCHC 31.8 L RDW 14.0 Plt Count 313 MPV 10.0 Immature Gran % (Auto) 0.4 H Neut % (Auto) 93.0 H Lymph % (Auto) 3.3 L [place] % (Auto) 2.6 Eos % (Auto) 0.3 L Baso % (Auto) 0.4 Lymph # (Auto) 0.46 L [place] # (Auto) 0.36 Eos # (Auto) 0.04 Baso # (Auto) 0.06 Abs Immat Gran (auto) 0.05 H Absolute Neuts (auto) 12.83 H Absolute Nucleated RBC 0.00 Nucleated RBC % 0.0 PT 11.4 INR 1.0 Sodium 144 Potassium 4.2 Chloride 101 Carbon Dioxide 13 L Anion Gap 30 H BUN 9 Creatinine 0.81 Estim Creat Clear Calc Not Reportable Estimated GFR > 60 Glucose 109 POC Capillary Glucose 93 Calculated Osmolality 297 H Lactic Acid 11.9 H* Calcium 10.3 H Magnesium 1.7 Total Bilirubin 1.8 H AST 161 H ALT 106 H Alkaline Phosphatase 117 Troponin I < 0.012 Total Protein 9.1 H Albumin 5.4 H Lipase 58 TSH 0.509 Urine Color Light yellow Urine Appearance Clear Urine pH 5.5 Ur Specific [place] >= 1.030 H Urine Protein Trace H Urine Glucose (UA) Negative Urine Ketones 2+ H Ur Blood (Man) Negative Urine Nitrate Negative Urine Bilirubin Negative Urine Urobilinogen 0.2 Leukocyte Esterase Rfl Negative Urine RBC 0-2 Urine WBC 0-3 Ur Squamous Epith Cells Rare Urine Bacteria Trace Urine Opiates Screen Negative Urine Methadone Screen Negative Ur Barbiturates Screen Negative Ur Phencyclidine Scrn Negative Ur Amphetamine Screen Negative U Benzodiazepines Scrn Negative Urine Cocaine Screen Negative U Cannabinoids Screen Negative Ethyl Alcohol < 10 Hepatitis A IgM Ab Hep Bs Antigen Hep B Core IgM Ab Hepatitis C Ab Screen Influenza A (RT-PCR) Negative Influenza B (RT-PCR) Negative RSV (RT-PCR) Negative SARS-CoV-2 RNA (RT-PCR) Negative Imaging Radiologist's impression: Ordering Physician: Ruben Live DO Date of Service: 07/11/25 Procedure(s): XR chest 1V portable Accession Number(s): [id number] cc: Ruben Live DO; Jere Solano MD; SENIOR [employer] [address] SQL DEVELOPER PHYSICIAN~ Examination: XR chest 1V portable Clinical History: vomit and cough Comparison: None Technique: Portable AP Findings: Heart size normal. Lungs clear. No acute bony abnormality. IMPRESSION: 1. No acute cardiopulmonary findings given portable technique. Reviewed, dictated and finalized at location [facility]. [facility] Ordering Physician: Ruben Live DO Date of Service: 07/11/25 Procedure(s): CT abdomen pelvis w con Accession Number(s): [id number] cc: Ruben Live DO; Jere Solano MD; SENIOR [address] [address] SQL DEVELOPER PHYSICIAN~ Leonor James EXAMINATION: CT abdomen pelvis w con COMPARISON: None HISTORY: lactic acidosis/VOMITING TECHNIQUE: Axial images were obtained through the abdomen, pelvis post administration of IV contrast. Oral contrast was also administered. Coronal reconstruction images were obtained from the axial views. CT scan performed using dose optimization techniques including the following automated exposure control; adjustment of mA and/or kV; use of iterative reconstruction technique. Automatic exposure control was used to reduce radiation dose. Permanent radiation dose record is archived to PACS. FINDINGS: CT abdomen: LUNG BASES: The lung bases are clear. The visualized portions of the heart and pericardium are unremarkable. LIVER: Severe hepatic steatosis. SPLEEN: Unremarkable. KIDNEYS: Right Kidney: Unremarkable. No calculi. No hydronephrosis. Left Kidney: Unremarkable. No calculi. No hydronephrosis ADRENAL GLANDS: Unremarkable. PANCREAS: Mild pancreatic atrophy. GALLBLADDER/BILIARY: Unremarkable. No biliary dilatation. STOMACH AND ESOPHAGUS: Thickening of the distal esophagus may represent mild esophagitis. Small hiatal hernia. BOWEL/MESENTERY: Moderate fecal content, no colitis or diverticulitis. Appendix is normal. Mesentery demonstrates minimal stranding which may be consistent with mild inflammation. There are no thickened or dilated loops of small bowel. ADENOPATHY/RETROPERITONEUM: No lymphadenopathy. AORTA/VASCULATURE: Normal caliber aorta. FREE FLUID OR FREE AIR: None. CT pelvis: SOLID ORGANS/REPRODUCTIVE: Probable fibroid changes noted of the uterus. BLADDER: Within normal limits. OSSEOUS STRUCTURES: No acute osseous abnormality.No suspicious lesions. OVERLYING SOFT TISSUES: Unremarkable. IMPRESSION: 1. Nonspecific stranding within the mesentery, possible mild mesenteritis 2. Incidental findings above Reviewed, dictated and finalized at location [facility]. [facility] DS: Summary Hospital Course Reason for hospitalization: nausea and vomiting Time Spent with Patient Time attestation: Total time spent providing and/or coordinating discharge services: 25 minutes DS: Admitting Diagnosis Discharge Date 07/12/2025 Admitting Diagnosis sepsis, lactic acidosis DS: Discharge Diagnosis Discharge Diagnosis (1) Sepsis: Code(s): A41.9 - Sepsis, unspecified organism Status: Acute (2) Acidosis, lactic: Code(s): E87.20 - Acidosis, unspecified Status: Acute (3) Leukocytosis: Code(s): D72.829 - Elevated white blood cell count, unspecified Status: Acute (4) Nausea & vomiting: Code(s): R11.2 - Nausea with vomiting, unspecified Status: Acute (5) Elevated liver function tests: Code(s): R79.89 - Other specified abnormal findings of blood chemistry Status: Acute (6) Hepatic steatosis: Code(s): K76.0 - Fatty (change of) liver, not elsewhere classified Status: Acute (7) ETOH abuse: Code(s): F10.10 - Alcohol abuse, uncomplicated Status: Acute (8) HTN (hypertension): Code(s): I10 - Essential (primary) hypertension Status: Acute (9) GERD (gastroesophageal reflux disease): Code(s): K21.9 - Gastro-esophageal reflux disease without esophagitis Status: Acute Discharge Plan Discharge Attending physician on discharge: Anshul Solano Discharging Clinician: Leilani Abdalla Patient Disposition: Home Activity: as tolerated Diet: as tolerated Discharge Instructions: Please call your PCP or return to the ER for uncontrolled nausea or vomiting, fever greater than 100.4, abdominal pain, chest pain or shortness of breath. Patient Instructions: Antibiotic Form, Ondansetron (By mouth), Gastroenteritis (DC), At-Risk Alcohol Use (DC), Alcohol Use Disorder (DC) Patient Language: Croatian Stand Alone Forms: General Discharge Information Follow-up/Referrals: PHYSICIAN,SENIOR [employer] [address] SQL DEVELOPER [Primary Care Provider, Internal Medicine] Referral Note: Call your PCP for a follow up appointment within 1-2 weeks of discharge. Discharge Medications: New ondansetron 4 mg tablet,disintegrating 4 mg PO Q8H PRN (Reason: nausea and vomiting) Qty: 7 0RF Continued amlodipine 5 mg tablet 5 mg PO DAILY omeprazole 20 mg capsule,delayed release(DR/EC) 20 mg PO DAILY Date of admission: 07/12/25 04:48 Primary Care Provider: PHYSICIAN,SENIOR [employer] [address] SQL DEVELOPER Admitting Provider: Anshul Solano Attending physician on admission: Anshul Solano Condition: Stable
--- NOTE | 2025-07-12 13:38 | PC.NURSE ---
Today at 1320 patient escorted out of facility with by her side in route to home. All discharge instructions given with patient or not having any question or concerns.
--- OUTSIDE RECORDS SUMMARY | 2025-07-15 08:11 | XMS_ITS | Data Portability ---
Author Organization [facility] Address [address] [place] [address] Assessment Encounter Date Assessment Date Assessment LastModified [...] In addition we provided contact information for [facility] primary care for patient to set up appointments to establish a PCP for long-term health management and age-appropriate screenings. [email or web address] Not available 11/19/2024 15:11:13 Plan of Treatment Reminders Order Date Submit Date Provider Last Modified By Organization Details Last Modified Time Details Appointments None recorded. Lab TSH, serum or plasma 2024 025 [facility] (Lab), [address] [place] [address], [id number], 14:37:02 CBC 2024 025 [facility] (Lab), [address] [place], [address], 5 14:37:02 lipid panel, serum 2024 025 [facility] (Lab), [address] [place] [address], [address], 5 14:37:03 CMP, serum or plasma 2024 025 [facility] (Lab), [address] [place] [address], [address], 5 14:37:03 HbA1c (hemoglob in A1c), blood 2024 025 [facility] (Lab), [address] [place] [address], [address], 5 14:37:03 TSH, serum or plasma 2024 025 [email or web address], [address], [place], [address], 5 14:37:01 CBC 2024 025 [email or web address], [address], [place], [address], 5 14:37:02 lipid panel, serum 2024 025 [email or web address], [address], [place], [address], 5 14:37:02 CMP, serum or plasma 2024 025 [email or web address], [address], [place], [address], 5 14:37:02 HbA1c (hemoglob in A1c), blood 2024 025 [email or web address], [address], [place], [address], 14:37:02 Referral family medicine referral - Establish care 2024 025 [email or web address] Mabel Antonyd [facility], [address], [place], [address], 08:12:26 Procedures None recorded. Surgeries None recorded. Imaging XR, chest, 2 view 2024 025 [facility] (Imaging), [address] [place], [address], 11:43:12 electroca rdiogram 2024 025 [email or web address] In-Office Order, Internal Use Only DO Not Attach Compendium DO Not Attach Compendium, Do Not Delete/merge, [id number] 14:36:12 Medication Orders Prilosec OTC 20 mg tablet,de layed release 2024 025 [facility]/Pharmacy #[id number], [address] [place], [address], 14:17:16 amlodipin e 5 mg tablet 2024 025 [facility]/Pharmacy #[id number], [address] [place], [address], 14:39:12 Patient TargetsNo targets recorded. Patient Instructions Encounter Date Encounter Id Patient Instructions Last Modified By Organization Details Last Modified Time 11/19/2024 [id number] A healthy lifestyle: care instructions [email or web address] Not available 11/19/2024 14:36:12 03/25/2025 [id number] palpitations: care instructions [email or web address] Not available 03/25/2025 14:36:29 A healthy lifestyle: care instructions [email or web address] Not available 03/25/2025 14:45:58 Reason for Referral [...] DO Not Attach Compendium, Do Not Delete/merge, [id number] 11/19/2024 14:58:26 11/20/19 alok reina am No observ ation record ed. Not Available 2024 15:17:37 Result Notes None [...] Last Updated DateTime 167.64 cm 31 kg/m2 73267.7 4 g 18 /min 93 /min 97 % 134/78 mm[Hg] Veronica Jerome LPN [place] [facility] 14:23:43 Date Recorded Body height Body mass index (BMI) Body weight Respiratory rate Heart rate Oxygen saturation Systolic And Diastolic Provider Name and Address Organization Details Last Updated DateTime 167.64 cm 30.5 kg/m2 15937.9 6 g 18 /min 93 /min 98 % 124/74 mm[Hg] ALISA Blunt [facility] 14:18:36 Social History Question Answer Notes LastModified by Organizat ion Details LastModified Time Tobacco Smoking Status Never Smoker Veronica Jerome LPN null, [facility] 11/19/2024 14:21:52 What Is Your Level Of [...] 50 mcg/0.25mL dose 08/16/2020 completed Not Available [facility] 14:11:43 COVID-19, mRNA, LNP-S, PF, 100 mcg/0.5mL dose or 50 mcg/0.25mL dose 09/13/2020 completed Not Available [facility] 14:11:43 COVID-19, mRNA, LNP-S, PF, kenny-sucrose, 30 mcg/0.3 mL 02/25/2025 completed Not Available [facility] 2024 14:11:43 Past Encounters Encounter ID Performer Location Encounter Start Date Encounter Closed Date Diagnosis/Indication Diagnosis SNOMED-CT Code Diagnosis ICD10 Code Diagnosis IMO Codes Diagnosis Note [id number] Hank Johnston MD [facility] [place] [facility] [address] [place] [address] 11/19/2024 14:11:53 11/22/2024 13:41:44 Essential hypertension 98917321 I10 Chest pain 48508926 R07. 9 Obesity 228603388 E66.9 Mixed hyperlipidemia 267 581976 E78.2 [id number] Hank Johnston MD [facility] [place] [address] [place] [address] 03/25/2025 14:10:05 03/26/2025 11:43:01 Essential hypertension 52275949 I10 00009 Continue amlodipine 5 mg daily. Will need low-sodium diet, ambulatory blood pressure monitoring and reaching out to care team if blood pressure numbers remain suboptimal (under 100/60, over 140/90) or if symptoms. Dyspnea on exertion 6084 5006 R06.09 [id number] Echocardio gram 2023 with no structural heart disease, valvular disease or diastolic dysfunctio n. Low risk findings on stress test. Non nicotine user with no diabetes. Obtain chest x-ray. Obtain lab work as outlined below. Does not feel like she has symptom complex suggestive of LEANNE. Red flag symptoms reviewed. If she continues to have symptoms, may need to repeat cardiac testing. Palpitations 20836034 R0 0.2 19803 Symptoms have abated. No significan t arrhythmia s on 48 hour Holter monitor. Lifestyle modificati ons and self rhythm monitoring encouraged . Gastroesop hageal reflux disease without esophagitis 878210139 K21.9 [id number] As a courtesy to the patient we will continue omeprazole which we had prescribed previously . Strongly encouraged that she follow-up with primary care to establish care and we will provide referral Obese class I [id number] 16201 E66.531 [id number] Diet/exerc ise encouraged for weight management and [...] Name 06/28/2025 1 [employer] [employer] [place] - DOS ON OR AFTER 2020 (MEDICAID REPLACEMENT - HMO) Leonor James [id number] Leonor James Notes Date Note Type Note Provider Name and Address Organization Details Recorded Time 11/19/2024 text/html ROS as noted in the [facility] Leonor James is a 54 y.o. female [...] ischemia. Hank Johnston MD Attn: Accounting, [address] [place], [address], [facility] 11/19/2024 15:11:32 03/25/2025 text/html ROS as noted in the [facility] Leonor James is a 54 y.o. female [...] ischemia. Hank Johnston MD Attn: Accounting[address] [place], [address], [place] - [facility] 03/25/2025 14:47:08 OBGyn Episode No OBEpisode recorded.
--- OUTSIDE RECORDS SUMMARY | 2025-07-15 08:11 | XMS_ITS | Clinical Summary ---
Author Organization [facility] Address [address] [place] [address] Care Team Providers Care Cellophane Bag Machine Operator Name Role Phone Unknown, Notinfile Primary Care [...] evaluation. 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
[2025-07-15 09:48] LABS: Hepatitis B Surface Antigen Negative (Negative)
[2025-07-15 09:54] LABS: HAV RESULT Negative (Negative); Hepatitis B Core IgM Result Negative (Negative)
--- NOTE | 2025-07-15 10:15 | PC.NURSE ---
Discharge call back completed, doing well, no vomiting, did question regarding no abx at dc, advised INTERNET DATABASE SPECIALIST decided not to continue, has not used any zofran and keeping small portions of food down.
== END 2025-07-12 13:20 | disposition home or self-care (01) ==
LOC: CHSED 07-12 04:40 → CHS2ND 07-12 09:22
PROVIDERS: Nurse Practitioner Adult Health; Admitting Provider Internal Medicine; Emergency Provider Family Medicine; Referring Provider Internal Medicine; Visit Provider Internal Medicine
DX: A41.9 Sepsis, unspecified organism (principal); E87.20 Acidosis, unspecified; D72.829 Elevated white blood cell count, unspecified; R11.2 Nausea with vomiting, unspecified; R79.89 Other specified abnormal findings of blood chemistry; K76.0 Fatty (change of) liver, not elsewhere classified; F10.10 Alcohol abuse, uncomplicated; K21.9 Gastro-esophageal reflux disease without esophagitis; I10 Essential (primary) hypertension; F41.9 Anxiety disorder, unspecified; Z20.822 Contact with and (suspected) exposure to COVID-19
CPT/HCPCS: 36415; 71045; 74177; 80053; 80074; 80307; 81001; 82077; 82948; 83605; 83690; 83735; 84443; 84484; 85025; 85610; 87637; 93005; 96365; 96366; 96372; 96375; 96376; 99285; A9270; G0378; G0379; J0780; J1200; J2405; J2543; J3360; J7120; Q9967

== ENCOUNTER 2025-07-30 13:35 | Outpatient (CLI) | payer OTHER, SELFPAY ==
[2025-07-30 13:55] LABS: Hematocrit 43.2 % (35.0-49.0); Hemoglobin 14.1 g/dL (12.0-15.0); Immature Granulocyte Percent A 0.6 % (0.0-0.0); Lymphocytes Absolute Auto 1.24 K/mm3 (1.10-4.50); Mean Corpuscular HGB Conc 32.6 g/dL (32-36); Mean Corpuscular Hemoglobin 30.9 pg (27.0-31.0); Mean Corpuscular Volume 94.7 fL (78.0-102.0); Nucleated Red Blood Cells Absolute Auto 0.00 K/mm3 (0.00-0.00); Nucleated Red Blood Cells Perc 0.0 % (0-0.0); Platelet Count Result 318 K/mm3 (150-420); Red Blood Count 4.56 M/mm3 (4.20-5.40); White Blood Count 6.2 K/mm3 (4.8-10.8)
[2025-07-30 14:04] LABS: Hemoglobin A1C 4.8 % (<5.7)
[2025-07-30 14:18] LABS: Alanine Aminotransferase 114 U/L (6-35); Albumin Level 5.0 g/dL (3.5-5.1); Alkaline Phosphatase 82 U/L (38-126); Anion Gap 13 mmol/L (4-12); Aspartate Amino Transferase 147 U/L (14-36); Bilirubin,Total 1.0 mg/dL (0.2-1.3); Blood Urea Nitrogen 5 mg/dL (7-17); Calcium 10.5 mg/dL (8.4-10.2); Carbon Dioxide 26 mmol/L (22-30); Chloride 102 mmol/L (98-107); Cholesterol 250 mg/dL (0-200); Estimated Glomerular Filt Rate > 60; Glucose 106 mg/dL (65-110); HDL Direct 110 mg/dL; Osmolality Calculated 289 mOsm/kg (285-295); Potassium 4.0 mmol/L (3.4-5.0); Sodium 141 mmol/L (137-145); Total Protein 8.1 g/dL (6.3-8.2); Triglycerides 74 mg/dL (<150)
[2025-07-30 15:03] LABS: Thyroid Stimulating Hormone Reflex 0.855 uIU/mL (0.465-4.68)
--- OUTSIDE RECORDS SUMMARY | 2025-07-30 15:46 | XMS_ITS | Clinical Summary ---
Author Organization [facility] Address [address] [place] [address] Care Team Providers Care Composing Machine Operator/Tender Name Role Phone Unknown, Notinfile Primary Care [...] evaluation. 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
[2025-08-03 09:51] LABS: Hepatitis B Surface Antigen Negative (Negative)
[2025-08-03 09:56] LABS: HAV RESULT Negative (Negative); Hepatitis B Core IgM Result Negative (Negative)
== END 2025-07-30 13:36 | disposition home or self-care (01) ==
LOC: CHSLAB 13:40
PROVIDERS: PCP Family Medicine; Visit Provider Internal Medicine
DX: R06.09 Other forms of dyspnea (principal); E78.2 Mixed hyperlipidemia; R74.01 Elevation of levels of liver transaminase levels; N95.1 Menopausal and female climacteric states
CPT/HCPCS: 36415; 80053; 80061; 80074; 82672; 83036; 84443; 85025